=== PATIENT | male | born 1965 | race Caucasian/White ===

== ENCOUNTER 2019-05-31 00:12 | Emergency (ER) | payer OTHER ==
[~2019-05-31] VITALS: Ht 167.6 cm; Wt 59.0 kg
[2019-05-31] MEDS ORDERED: HYDROCODONE/ACETAMINOPHEN 5/325MG TABLET PO ONE (04:15)
[2019-05-31 07:00] VITALS: BP 97/64
[2019-05-31] MEDS ORDERED: ACETAMINOPHEN 325MG TABLET PO ONE (07:00)
== END 2019-05-31 07:35 | disposition left against medical advice (07) ==
LOC: ER 00:12
DX: S80.212A Abrasion, left knee, initial encounter (principal); S20.212A Contusion of left front wall of thorax, initial encounter; F10.10 Alcohol abuse, uncomplicated; Y90.9 Presence of alcohol in blood, level not specified; Z59.0 Homelessness; V03.10XA Pedestrian on foot injured in collision with car, pick-up truck or van in traffic accident, initial encounter; Y93.89 Activity, other specified; Y92.488 Other paved roadways as the place of occurrence of the external cause
CPT/HCPCS: 99283

== ENCOUNTER 2019-05-31 23:19 | Emergency (ER) | payer OTHER ==
[~2019-05-31] VITALS: Ht 177.8 cm; Wt 82.0 kg
[2019-05-31 23:23] VITALS: BP 134/60
== END 2019-06-01 07:34 | disposition left against medical advice (07) ==
LOC: ER 23:19
DX: R10.12 Left upper quadrant pain (principal); R00.0 Tachycardia, unspecified; F10.129 Alcohol abuse with intoxication, unspecified; Y90.9 Presence of alcohol in blood, level not specified; V03.10XA Pedestrian on foot injured in collision with car, pick-up truck or van in traffic accident, initial encounter; Y93.89 Activity, other specified; Y92.488 Other paved roadways as the place of occurrence of the external cause
CPT/HCPCS: 99283